=== PATIENT | female | born 1975 | race Caucasian/White ===

== ENCOUNTER 2022-05-31 14:46 | Emergency (ER) | payer OTHER, SELFPAY ==
--- NOTE | ~2022-05-31 | CT_ITS ---
EXAMINATION: CT chest abdomen pelvis wo con DATE: 05/31/2022 15:40 INDICATION: abdominal pain, chest discomfort . TECHNIQUE: Computed tomography (CT) of the chest, abdomen, and pelvis was performed with 100 mL Omnip aque-350 intravenous contrast. Automated exposure control and iterative reconstruction technique were employed. The dose-length product was 1666.61 mGy-cm. COMPARISON: None FINDINGS: Thoracic aorta: No significant dilation or calcification. Lung parenchyma and airways: Bibasilar scar/atelectasis. Very mild scattered tree-in-bud opacities. L ungs and airways are otherwise clear. Thoracic inlet, axillae and chest wall: No thyroid or soft tissue mass. No axillary lymphadenopathy. Intact sternotomy wires. Mediastinum: No mass or lymphadenopathy. Heart and pericardium: Normal heart size. No pericardial effusion. Cardiac valve replacement. Coronary artery calcifications: Absent4. Pleura: No effusion or mass. Thoracic bones: No acute osseous finding in the chest. ABDOMEN/PELVIS: Liver: Normal. Biliary/Gallbladder: Gallbladder is normal. No bile duct dilation. Pancreas: No mass or duct dilation. Spleen: Normal. Adrenals:Small left adrenal adenoma Kidneys: No mass, stone, or hydronephrosis. GI tract: No small or large bowel dilation. Normal appendix. Mesentery/Peritoneum: No ascites, mass, or free air. Retroperitoneum: No mass Pelvis: Normal urinary bladder and uterus. 3.2 cm simple left ovarian cyst. Soft Tissues: Abandoned epicardial pacing wires. Small supraumbilical ventral hernia containing fat, with mild inflammatory change. Small uncomplicated fat-containing umbilical hernia. Abdominopelvic bones: No acute osseous finding in the abdomen/pelvis. IMPRESSION: Minimal scattered tree-in-bud opacities in the lungs, as can be seen with atypical infection, ABPA, a nd small airways disease. Minimal inflammation of a small fat-containing, supra umbilical, ventral he rnia. No other acute findings in the chest abdomen or pelvis. Reviewed, dictated and finalized at location K. [facility] IMPRESSION: Minimal scattered tree-in-bud opacities in the lungs, as can be seen with atypi sharlene infection, ABPA, and small airways disease. Minimal inflammation of a small fat-containing, supra umbilical, ventral hernia. No other acute findings in th e chest abdomen or pelvis.
[2022-05-31 14:50] VITALS: BP 166/97; PULSE 94; RESP 18; TEMP 36.2; O2SAT 97
--- NOTE | 2022-05-31 15:24 | ECG_ITS ---
Measurements Intervals [place] Rate: 85 P: 60 IA: 173 QRS: 10 QRSD: 93 T: 65 QT: 402 QTc: 479 Interpretive Statements SINUS RHYTHM NONSPECIFIC T-WAVE ABNORMALITY BORDERLINE ECG NO PREVIOUS ECG AVAILABLE FOR COMPARISON Electronically Signed On 06-01-2022 13:26:14 RADIOLOGY SPECIAL PROCEDURE TECH by Delmar Horton M.D.
[2022-05-31 15:41] LABS: Appearance Urine Clear (Clear); Bilirubin Urine Negative (Negative); Blood Urine Negative (Negative); Glucose Urine UA Negative (Negative); Ketones Urine Negative (Negative); Leukocyte Esterase Ur Negative LEU/UL (Negative); Nitrate Urine Negative (Negative); Protein Urine Trace (Negative); Specific Grav Ur >= 1.030 (1.010-1.020); Urobilinogen Urine 0.2 mg/dL (0.2-1.0); pH Urine 5.5 (5.0-8.0)
[2022-05-31] MEDS: ALPRAZolam (*CRX) 0.5 MG TABLET PO (15:44)
[2022-05-31 15:49] LABS: Add Urine Microscopic? YES; Amorphous Sediment Urine Few; Color Urine Light Yellow (Yellow); Mucus Urine Few /lpf; Squamous Epithelial Cell Urine Many /hpf (Few)
--- NOTE | 2022-05-31 15:57 | PC.NURSE ---
attempted to start saline lock x2 unsuccessful. erp consulted et states the access is not needed at this time... we can hold off until results are back . resp even and non-labored at this time.
[2022-05-31 17:00] VITALS: BP 165/97; PULSE 88; RESP 16; TEMP 36.4; O2SAT 98
[2022-05-31 17:32] LABS: Basophils Absolute Auto 0.03 K/mm3 (0.00-0.10); Basophils Percent Auto 0.3 % (0.0-1.0); Eosinophils Absolute Auto 0.18 K/mm3 (0.02-0.50); Eosinophils Percent Auto 1.9 % (1.0-6.0); Hematocrit 49.6 % (35.0-49.0); Hemoglobin 15.3 g/dL (12.0-15.0); Immature Granulocyte Absolute 0.04 K/mm3 (0.00-0.00); Immature Granulocyte Percent A 0.4 % (0.0-0.0); Lymphocytes Absolute Auto 2.35 K/mm3 (1.10-4.50); Mean Corpuscular HGB Conc 30.8 g/dL (32.0-36.0); Mean Corpuscular Hemoglobin 28.9 pg (27.0-31.0); Mean Corpuscular Volume 93.6 fL (78.0-102.0); Mean Platelet Volume 10.6 fl (9.2-11.8); Monocytes Absolute Auto 0.44 K/mm3 (0.10-0.90); Monocytes Percent Auto 4.7 % (2.0-11.0); Neutrophils Absolute Auto 6.4 K/mm3 (1.7-7.2); Neutrophils Percent Auto 67.7 % (50.0-70.0); Platelet Count Result 228 K/mm3 (150-420); Red Cell Distribution Width 14.6 % (11.6-14.4); White Blood Count 9.4 K/mm3 (4.8-10.8)
--- NOTE | 2022-05-31 17:37 | PC.NURSE ---
2 more attempts to start iv access unsuccessful, pt shavon procedures well.
--- NOTE | 2022-05-31 17:37 | ED.GENADULT ---
HPI - General Adult General Chief complaint: Unspecified Stated complaint: dizzy, abd pain, arm pain Time Seen by Provider: 05/31/22 14:49 Related Data Home Medications Medication Instructions Recorded Confirmed metformin 500 mg tablet 500 mg PO DAILY 05/31/22 05/31/22 warfarin 5 mg tablet 5 mg PO DAILY 05/31/22 05/31/22 Allergies Allergy/AdvReac Type Severity Reaction Status Date / Time Penicillins AdvReac Unknown ABD PAIN Verified 05/31/22 15:11 Course Vital Signs Vital signs: Vital Signs Temperature 97.1 F L 05/31/22 14:50 Pulse Rate 94 05/31/22 14:50 Respiratory Rate 18 05/31/22 14:50 Blood Pressure 166/97 H 05/31/22 14:50 Pulse Oximetry 97 05/31/22 14:50 Oxygen Delivery Room Air 05/31/22 14:50 Temperature 97.1 F L 05/31/22 14:50 Pulse Rate 94 05/31/22 14:50 Respiratory Rate 18 05/31/22 14:50 Blood Pressure 166/97 H 05/31/22 14:50 Pulse Oximetry 97 05/31/22 14:50 Oxygen Delivery Room Air 05/31/22 14:50 Medical Decision Making Vital Signs Vital Signs: Vital Signs Temperature 97.1 F L 05/31/22 14:50 Pulse Rate 94 05/31/22 14:50 Respiratory Rate 18 05/31/22 14:50 Blood Pressure 166/97 H 05/31/22 14:50 Pulse Oximetry 97 05/31/22 14:50 Oxygen Delivery Room Air 05/31/22 14:50 Temperature 97.1 F L 05/31/22 14:50 Pulse Rate 94 05/31/22 14:50 Respiratory Rate 18 05/31/22 14:50 Blood Pressure 166/97 H 05/31/22 14:50 Pulse Oximetry 97 05/31/22 14:50 Oxygen Delivery Room Air 05/31/22 14:50 Lab Data 05/31/22 17:26 05/31/22 17:26 Labs: Lab Results 05/31/22 05/31/22 05/31/22 Range/Units 15:24 17:26 17:26 WBC Pending RBC Pending Hgb Pending Hct Pending MCV Pending MCH Pending MCHC Pending RDW Pending Plt Count Pending MPV Pending Immature Gran % (Auto) Pending Neut % (Auto) Pending Lymph % (Auto) Pending Terrell % (Auto) Pending Eos % (Auto) Pending Baso % (Auto) Pending Lymph # (Auto) Pending [place]rell # (Auto) Pending Eos # (Auto) Pending Baso # (Auto) Pending Abs Immat Gran (auto) Pending Absolute Neuts (auto) Pending Absolute Nucleated RBC Pending Nucleated RBC % Pending PT Pending INR Pending APTT Pending Sodium Potassium Chloride Carbon Dioxide Anion Gap BUN Creatinine Estim Creat Clear Calc Estimated GFR Glucose Hemoglobin A1c Calculated Osmolality Lactic Acid Calcium Total Bilirubin AST ALT Alkaline Phosphatase Troponin I NT-Pro-B Natriuret Pep Total Protein Albumin Lipase TSH Urine Color Light yellow (Yellow) Urine Appearance Clear (Clear) Urine pH 5.5 (5.0-8.0) Ur Specific [place] >= 1.030 H (1.010-1.020) Urine Protein Trace H (Negative) Urine Glucose (UA) Negative (Negative) Urine Ketones Negative (Negative) Ur Blood (Man) Negative (Negative) Urine Nitrate Negative (Negative) Urine Bilirubin Negative (Negative) Urine Urobilinogen 0.2 (0.2-1.0) mg/dL Leukocyte Esterase Rfl Negative (Negative) FAVIAN/UL Ur Squamous Epith Cells Many H (Few) /hpf Amorphous Sediment Few H (None) Hyaline Casts 5-9 H (None) /lpf Granular Casts 5-9 H (None) /lpf Urine Mucus Few H /lpf 05/31/22 05/31/22 05/31/22 Range/Units 17:26 17:26 17:26 WBC RBC Hgb Hct MCV MCH MCHC RDW Plt Count MPV Immature Gran % (Auto) Neut % (Auto) Lymph % (Auto) Terrell % (Auto) Eos % (Auto) Baso % (Auto) Lymph # (Auto) Terrell # (Auto) Eos # (Auto) Baso # (Auto) Abs Immat Gran (auto) Absolute Neuts (auto) Absolute Nucleated RBC Nucleated RBC
[2022-05-31 17:42] LABS: INR 3.1; Partial Thromboplastin Time 53.3 SEC (23.90-30.70); Prothrombin Time 30.7 Seconds (9.50-12.10)
[2022-05-31 17:45] LABS: Hemoglobin A1C 7.4 % (<5.7)
[2022-05-31 17:49] LABS: Lactic Acid Reflex 0.6 mmol/L (0.4-2.0)
[2022-05-31 17:56] LABS: Alanine Aminotransferase 22 U/L (14-59); Albumin Level 3.1 g/dL (3.4-5.0); Alkaline Phosphatase 101 U/L (46-116); Anion Gap 8 mmol/L (8-16); Aspartate Amino Transferase 26 U/L (15-37); Bilirubin,Total 0.8 mg/dL (0.00-1.00); Blood Urea Nitrogen 20 mg/dL (7-18); Calcium 8.8 mg/dL (8.5-10.1); Carbon Dioxide 22 mmol/L (21-32); Chloride 101 mmol/L (98-108); Estimated CRCL calculation 93 ml/min; Estimated Glomerular Filt Rate > 60; Glucose 114 mg/dL (70-99); Lipase 206 U/L (73-393); NT Pro B Type Natriuretic Pept 167 pg/mL (0-125); Osmolality Calculated 275 mOsm/kg (285-295); Sodium 131 mmol/L (136-145); Total Protein 7.7 g/dL (6.4-8.2)
--- NOTE | 2022-05-31 18:06 | ED.GENADULT ---
HPI - General Adult General Chief complaint: Unspecified Stated complaint: dizzy, abd pain, arm pain Time Seen by Provider: 05/31/22 14:49 Source: patient Mode of arrival: ambulatory Limitations: no limitations History of Present Illness HPI narrative: this is a 46-year-old female with generalized discomfort and anxiety secondary to her history of diabetes has a history of aortic valve replacement currently no shortness of breath no chest pain does have some vague abdominal discomfort with no fever chills no nausea vomiting no diarrhea constipation. Onset (ago): month(s) Related Data Home Medications Medication Instructions Recorded Confirmed metformin 500 mg tablet 500 mg PO DAILY 05/31/22 05/31/22 warfarin 5 mg tablet 5 mg PO DAILY 05/31/22 05/31/22 Allergies Allergy/AdvReac Type Severity Reaction Status Date / Time Penicillins AdvReac Unknown ABD PAIN Verified 05/31/22 15:11 Review of Systems Review of Systems: All systems reviewed & are unremarkable except as noted in HPI and below PMFSH Past Medical History Medical History Diabetes mellitus Exam Const: General: healthy appearing Nutritional Appearance: well nourished Orientation/consciousness: patient oriented x3 Limitations: no limitations HENMT: Head: normal to inspection Face/Nose/Sinus: Normal external nose present Face and sinus: normal facial exam Eyes: Conjunctivae: conjunctivae normal Pupils: Equal, round and reactive pupils present EOM: EOMs intact bilaterally Direct Ophthalmoscopy: no photophobia Neck: Neck: normal visual inspection Chest: Chest palpation & inspection: normal inspection of the chest Resp: Effort & Inspection: normal respiratory effort Auscultation: clear to auscultation bilaterally Cardio: Rate: regular rate Rhythm: regular rhythm GI: GI Palp: Yes Soft to palpation : General: Yes bladder normal to palpation Urinary Catheter: Urinary Catheter: patent and draining Skin: General skin exam: normal color Rashes: no rashes Neuro: General: patient oriented x3 Cranial nerves: Yes Nystagmus not present Speech: normal speech Extrem: General: normal to inspection Psych: Mental Status: mental status grossly normal Affect: normal affect Course Course Emergency Course: CT scan and labs reviewed with patient, the patient did receive Xanax which helped with her anxiety. Vital Signs Vital signs: Vital Signs Temperature 36.2 C L 05/31/22 14:50 Pulse Rate 94 05/31/22 14:50 Respiratory Rate 18 05/31/22 14:50 Blood Pressure 166/97 H 05/31/22 14:50 Pulse Oximetry 97 05/31/22 14:50 Oxygen Delivery Room Air 05/31/22 14:50 Temperature 36.4 C 05/31/22 17:00 Pulse Rate 88 05/31/22 17:00 Respiratory Rate 16 05/31/22 17:00 Blood Pressure 165/97 H 05/31/22 17:00 Pulse Oximetry 98 05/31/22 17:00 Oxygen Delivery Room Air 05/31/22 17:00 Medical Decision Making Vital Signs Vital Signs: Vital Signs Temperature 36.2 C L 05/31/22 14:50 Pulse Rate 94 05/31/22 14:50 Respiratory Rate 18 05/31/22 14:50 Blood Pressure 166/97 H 05/31/22 14:50 Pulse Oximetry 97 05/31/22 14:50 Oxygen Delivery Room Air 05/31/22 14:50 Temperature 36.4 C 05/31/22 17:00 Pulse Rate 88 05/31/22 17:00 Respiratory Rate 16 05/31/22 17:00 Blood Pressure 165/97 H 05/31/22 17:00 Pulse Oximetry 98 05/31/22 17:00 Oxygen Delivery Room Air 05/31/22 17:00 Lab Data 05/31/22 17:26 05/31/22 17:26 Labs: Lab Results 05/31/22 05/31/22 05/31/22 Range/Units 15:24 17:26 17:26 WBC 9.4 (4.8-10.8) K/mm3 RBC 5.30 (4.20-5.40) M/mm3 Hgb 15.3 H (12.0-15.0) g/dL Hct 49.6 H (35.0-49.0) % MCV 93.6 (78.0-102.0) fL MCH 28.9 (27.0-31.0) pg MCHC 30.8 L (32.0-36.0) g/dL RDW 14.6 H (11.6-14.4) % Plt Count 228 (150-420) K/mm3 MPV 10.6 (9.2-11.8)
[2022-05-31 18:12] VITALS: BP 146/94; PULSE 84; RESP 16; O2SAT 100
== END 2022-05-31 18:15 | disposition home or self-care (01) ==
PROVIDERS: Emergency Provider Emergency Medicine; PCP Family Medicine
DX: F41.9 Anxiety disorder, unspecified (principal); E11.9 Type 2 diabetes mellitus without complications
CPT/HCPCS: 36415; 71250; 74176; 80053; 81001; 83036; 83605; 83690; 83880; 84443; 84484; 85025; 85610; 85730; 93005; 99284; A9270

== ENCOUNTER 2022-08-08 13:58 | Outpatient (CLI) | payer OTHER, SELFPAY ==
[2022-08-08 14:50] LABS: INR 2.3
== END 2022-08-08 13:59 | disposition home or self-care (01) ==
PROVIDERS: PCP Family Medicine
DX: Z79.01 Long term (current) use of anticoagulants (principal)
CPT/HCPCS: 36415; 85610

== ENCOUNTER 2022-09-28 20:30 | Emergency (ER) | payer OTHER, SELFPAY ==
--- NOTE | ~2022-09-28 | XR_ITS ---
EXAMINATION: [id number] Exam Date/Time: 09/28/2022 20:35 CDT HISTORY: COUGH, FALL 2 WEEKS AGO. PAIN ANTERIOR LEFT RIBS. Comparison: None available. RESULT: Lines, tubes, and devices: Intact sternotomy wires. Apparently abandoned pacing wires. Lungs and pleura: Linear bibasilar opacities likely representing atelectasis/scar. Cardiomediastinal silhouette: Stable. Other: No acute osseous or upper abdominal finding. IMPRESSION: No acute cardiopulmonary process. No acute osseous finding in the left ribs. Reviewed, dictated and finalized at location K.
[2022-09-28 20:32] VITALS: BP 168/101; PULSE 99; RESP 18; TEMP 36.6; O2SAT 97
--- NOTE | 2022-09-28 20:33 | ED.GENADULT ---
HPI - General Adult General Chief complaint: Unspecified Stated complaint: Rib Pain Time Seen by Provider: 09/28/22 20:30 Source: patient Mode of arrival: ambulatory Limitations: no limitations History of Present Illness HPI narrative: 46 year old female presents to the Emergency Department complaining of left lower chest /rib pain. patient states began several days ago. has been coughing. Hurts to take deep breath. Cough productive clear phlegm. Smoker. States she fell 1.5 weeks ago, but did not strike chest. Onset (ago): day(s) (several) Location: chest (left lower) Severity: severe Quality: sharp Relieving factors: none Exacerbating factors: other (deep breaths, coughing, palpation) Associated symptoms: cough Related Data Home Medications Medication Instructions Recorded Confirmed metformin 500 mg tablet 500 mg PO DAILY 05/31/22 09/28/22 atorvastatin 20 mg tablet 20 mg PO DAILY 09/28/22 09/28/22 levothyroxine 25 mcg tablet 25 mcg PO DAILY 09/28/22 09/28/22 pantoprazole 20 mg tablet,delayed 20 mg PO DAILY 09/28/22 09/28/22 release spironolactone 25 mg tablet 25 mg PO DAILY 09/28/22 09/28/22 warfarin 6 mg tablet 6 mg PO DIRECTED 09/28/22 09/28/22 Allergies Allergy/AdvReac Type Severity Reaction Status Date / Time morphine Allergy Unknown Verified 09/28/22 20:44 Penicillins AdvReac Unknown ABD PAIN Verified 05/31/22 15:11 Review of Systems Review of Systems: All systems reviewed & are unremarkable except as noted in HPI and below Constitutional: Constitutional: Reports as per HPI, Reports no additional constitutional complaints and Denies fever(s) Eyes: Eyes: Reports as per HPI and Reports no additional eye complaints ENT: Reports system reviewed and no additional complaints, except as documented and Reports as per HPI Cardiovascular: Cardiovascular: Reports as per HPI, Reports no additional cardiovascular complaints, Reports chest pain (left lower), Denies chest pain at rest, Denies chest pain with activity, Denies palpitations, Denies dyspnea, Denies dyspnea on exertion, Denies orthopnea and Denies paroxysmal nocturnal dyspnea Respiratory: Respiratory: Reports as per HPI, Reports no additional respiratory complaints, Reports cough, Denies hemoptysis, Reports pain on inspiration, Reports pain with cough, Denies dyspnea and Denies dyspnea on exertion Gastrointestinal: Gastrointestinal: Reports as per HPI, Reports no additional gastrointestinal complaints, Denies abdominal pain, Denies diarrhea, Denies nausea and Denies vomiting Genitourinary: Genitourinary: Reports no additional female genitourinary complaints and Reports as per HPI Musculoskeletal: Musculoskeletal: Reports no additional musculoskeletal complaints, Reports as per HPI, Denies back pain and Denies neck pain Integumentary/Breasts: Skin/Breast: Reports system reviewed and no additional complaints, except as docu and Reports as per HPI Neurologic: Reports system reviewed and no additional complaints, except as documented and Reports as per HPI Psychiatric: Psychiatric: Reports no additional psychiatric complaints Endocrine: Endocrine: Reports no additional endocrine complaints Hematologic/Lymphatic: Hematologic/Lymphatic: Reports no additional hematologic/lymphatic complaints Allergic/Immunologic: Allergic/Immunologic: Reports no additional allergic/immunologic complaints [facility] Past Medical History Medical History Diabetes mellitus Exam Const: General: cooperative, healthy appearing and well developed; No acute distress or diaphoretic Nutritional Appearance: average body habitus Orientation/consciousness: patient oriented x3 Limitations: no limitations HENMT: Head: normal to inspection Face/Nose/Sinus: Normal external nose present Face and sinus: normal facial exam Mouth: Yes oropharynx normal and Yes moist mucous membranes Throat: posterior oropharynx normal Eyes: Genera
[2022-09-28] MEDS: HYDROcodone/acetaminophen (*CRX) 10-325 MG TABLET 1 TAB PO (22:06)
[2022-09-28] MEDS: BENZONATATE 100 MG CAPSULE 200 MG PO (22:07)
[2022-09-28 22:10] VITALS: PULSE 80; RESP 18; O2SAT 96
== END 2022-09-28 22:11 | disposition home or self-care (01) ==
PROVIDERS: Emergency Provider Emergency Medicine; PCP Family Medicine
DX: R07.89 Other chest pain (principal); E11.9 Type 2 diabetes mellitus without complications; Z79.84 Long term (current) use of oral hypoglycemic drugs; Z79.01 Long term (current) use of anticoagulants; F17.200 Nicotine dependence, unspecified, uncomplicated
CPT/HCPCS: 71101; 99283; A9270

== ENCOUNTER 2023-09-08 15:05 | Outpatient (CLI) | payer OTHER, SELFPAY ==
--- NOTE | ~2023-09-08 | US_ITS ---
EXAMINATION: US soft tissue abdomen DATE: 09/08/2023 15:31 INDICATION: Supraumbilical palpable mass at the anterior abdomen TECHNIQUE: Multiple grayscale and Doppler ultrasound images of the region of concern at the supraumbi lical anterior abdomen were obtained. COMPARISON: CT dated 05/31/2022 FINDINGS: Slight interval increase in size of a now 4.3 x 3.9 x 2.3 cm fat-containing supraumbilical ventral he rnia which previous measured 3.7 x 2.5 x 1.8 cm at the time of the prior CT. The hernia extends throu gh approximately 8-10 mm wide orifice. There is minimal change with Valsalva. Stool-filled colon can be seen deep to the anterior abdominal wall. No evident herniated bowel. IMPRESSION: 1. Small interval increase in size of a now 4.3 x 3.9 x 2.3 cm fat-containing supraumbilical ventral hernia. Reviewed, dictated and finalized at location L. IMPRESSION: 1. Small interval increase in size of a now 4.3 x 3.9 x 2.3 cm fat-containing s upraumbilical ventral hernia.
== END 2023-09-08 15:06 | disposition home or self-care (01) ==
PROVIDERS: PCP Family Medicine
DX: R19.00 Intra-abdominal and pelvic swelling, mass and lump, unspecified site (principal)
CPT/HCPCS: 76705

== ENCOUNTER 2024-08-31 20:11 | Emergency (ER) | payer OTHER, SELFPAY ==
[2024-08-31] VITALS (14 sets, daily range): BP systolic 152–167; BP diastolic 86–116; PULSE 75–87; RESP 15–37; TEMP 36.6; O2SAT 99–100
--- NOTE | 2024-08-31 20:15 | ED.CHESTPAIN ---
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 The pain is unprovoked. No relation to exercise. It is tender on palpation. The location is over the left breast. Pain currently is rated as 3/10. No shortness of breath. No paroxysmal nocturnal dyspnea. Has dyspnea on exertion. no fever or chills. No worsening cough or sputum production. MD complaint: chest pain Pertinent past history: other ( Status post tricuspid valve replacement) Onset (ago): year(s) ( 9 years ago) Timing of current episode: episodic Prior episodes: Yes Onset: during rest Pain location: left chest Pain radiation: none Severity: mild Pain scale (0-10): 3 Quality: sharp Relieving factors: nothing Exacerbating factors: nothing Treatment prior to arrival: none Risk Factors Coronary artery disease risk factors: diabetes, smoking history, hyperlipidemia and hypertension Thoracic aortic dissection risk factors: longstanding hypertension Related Data Home Medications ?Medication ?Instructions ?Recorded ?Confirmed ?Last Taken ?Type metformin 500 mg tablet 500 mg PO DAILY 05/31/22 09/28/22 Unknown History atorvastatin 20 mg tablet 20 mg PO DAILY 09/28/22 09/28/22 Unknown History levothyroxine 25 mcg tablet 25 mcg PO DAILY 09/28/22 09/28/22 Unknown History pantoprazole 20 mg tablet,delayed 20 mg PO DAILY 09/28/22 09/28/22 Unknown History release spironolactone 25 mg tablet 25 mg PO DAILY 09/28/22 09/28/22 Unknown History warfarin 6 mg tablet 6 mg PO DIRECTED 09/28/22 09/28/22 Unknown History Allergies Allergy/AdvReac Type Severity Reaction Status Date / Time morphine Allergy Unknown Verified 08/31/24 20:22 Penicillins AdvReac Unknown ABD PAIN Verified 08/31/24 20:22 Review of Systems Review of Systems: All systems reviewed & are unremarkable except as noted in HPI and below Constitutional: Constitutional: Reports as per HPI and Reports no additional constitutional complaints Eyes: Eyes: Reports as per HPI and Reports no additional eye complaints ENT: Reports system reviewed and no additional complaints, except as documented and Reports as per HPI Cardiovascular: Cardiovascular: Reports as per HPI and Reports no additional cardiovascular complaints Respiratory: Respiratory: Reports as per HPI and Reports no additional respiratory complaints Gastrointestinal: Gastrointestinal: Reports as per HPI and Reports no additional gastrointestinal complaints Comments: abdominal wall hernia in the epigastric region Genitourinary: Genitourinary: Reports no additional female genitourinary complaints and Reports as per HPI Musculoskeletal: Musculoskeletal: Reports no additional musculoskeletal complaints and Reports as per HPI Integumentary/Breasts: Skin/Breast: Reports system reviewed and no additional complaints, except as docu and Reports as per HPI Neurologic: Reports system reviewed and no additional complaints, except as documented and Reports as per HPI Psychiatric: Psychiatric: Reports no additional psychiatric complaints and Reports as per HPI Endocrine: Endocrine: Reports no additional endocrine complaints and Reports as per HPI Hematologic/Lymphatic: Hematologic/Lymphatic: Reports no additional hematologic/lymphatic complaints and Reports as per HPI Allergic/Immunologic: Allergic/Immunologic: Reports no additional allergic/immunologic complaints and Reports as per HPI [facility] Past Medical History Medical History (Updated 08/31/24 @ 21:41 by Tam Putnam MD) Dyslipidemia Hypertension Diabetes mellitus Surgical History Surgical History (Updated 08/31/24 @ 20:31 by Tam Putnam MD) H/O tricuspid valve replacement Social History Social History (Updated 08/31/24 @ 20:31 by Tam Putnam MD) Social History: smoke Exam Narrative: blood pressure 156/93. Oxygen saturation of 100% on room air. Afebrile. Const: General: no acute distress Nutritional Appearance: well nourished Orientation/consciousness: patient oriented x3 Limitations: no limitations HENMT: Head: normal to inspection Ears: external ears normal Face/Nose/Sinus: Normal external nose present Face and sinus: normal facial exam Mouth: Yes Normal oral and palatal mucosa present Throat: posterior oropharynx normal Eyes: Conjunctivae: conjunctivae normal Pupils: Equal, round and reactive pupils present EOM: EOMs intact bilaterally Direct Ophthalmoscopy: no photophobia Neck: Neck: normal visual inspection Chest: Chest palpation & inspection: normal inspection of the chest Other: Tenderness over the left anterior chest Resp: Effort & Inspection: normal respiratory effort Auscultation: clear to auscultation bilaterally Cardio: Rate: regular rate Rhythm: regular rhythm GI: GI Palp: Yes Soft to palpation Auscultation: normal bowel sounds Other: epigastric parietal hernia. No tenderness/ rigidity /rebound. : General: Yes no CVA tenderness Back/Spine/Pelvis: Back: no CVA tenderness Skin: General skin exam: normal color Rashes: no rashes Wounds: no wounds Neuro: General: patient oriented x3, moves all extremities, no meningeal signs, no focal motor deficits and CN's II-XI intact bilaterally Speech: normal speech Extrem: General: normal to inspection and no clubbing, cyanosis or edema Psych: Mental Status: mental status grossly normal Affect: normal affect Attitude: cooperative Course Course Emergency Course: left chest pain-- Tenderness on palpation of the left chest wall.EKG did not show any acute findings. Normal troponins. Chest x-ray did not show any acute findings. Vital Signs Vital signs: Vital Signs Temperature 36.6 C 08/31/24 20:20 Pulse Rate 87 08/31/24 20:20 Respiratory Rate 15 08/31/24 20:20 Blood Pressure 156/93 H 08/31/24 20:20 Pulse Oximetry 99 08/31/24 20:20 Oxygen Delivery Room Air 08/31/24 20:20 Temperature 36.6 C 08/31/24 20:20 Pulse Rate 79 08/31/24 21:50 Respiratory Rate 18 08/31/24 21:50 Blood Pressure 162/86 H 08/31/24 21:50 Pulse Oximetry 100 08/31/24 21:50 Oxygen Delivery Room Air 08/31/24 21:50 MDM - Chest Pain MDM Narrative Medical decision making narrative: Left chest wall pain Differential Diagnosis Differential diagnosis: Likely fracture of rib and pneumothorax Medical Records Data Attestation: I reviewed the patient's medical records. Lab Data Attestation: I reviewed the patient's lab results. 08/31/24 20:55 08/31/24 20:55 Labs: Lab Results 08/31/24 08/31/24 08/31/24 Range/Units 20:45 20:46 20:55 WBC 10.2 (4.8-10.8) K/mm3 RBC 4.96 (4.20-5.40) M/mm3 Hgb 14.4 (12.0-15.0) g/dL Hct 45.5 (35.0-49.0) % MCV 91.7 (78.0-102.0) fL MCH 29.0 (27.0-31.0) pg MCHC 31.6 L (32-36) g/dL RDW 13.9 (11.6-14.4) % Plt Count 234 (150-420) K/mm3 MPV 10.2 (9.2-11.8) fl Immature Gran % (Auto) 0.4 H (0.0-0.0) % Neut % (Auto) 69.8 (50.0-70.0) % Lymph % (Auto) 21.6 (18.0-42.0) % [place] % (Auto) 4.8 (2.0-11.0) % Eos % (Auto) 3.0 (1.0-6.0) % Baso % (Auto) 0.4 (0.0-1.0) % Lymph # (Auto) 2.21 (1.10-4.50) K/mm3 [place] # (Auto) 0.49 (0.10-0.90) K/mm3 Eos # (Auto) 0.31 (0.02-0.50) K/mm3 Baso # (Auto) 0.04 (0.00-0.10) K/mm3 Abs Immat Gran (auto) 0.04 H (0.00-0.00) K/mm3 Absolute Neuts (auto) 7.12 (1.70-7.20) K/mm3 Absolute Nucleated RBC 0.00 (0.00-0.00) K/mm3 Nucleated RBC % 0.0 (0-0.0) % PT 24.8 H (9.50-12.1) Seconds INR 2.4 Sodium 142 (136-145) mmol/L Potassium 3.8 (3.5-5.1) mmol/L Chloride 106 (98-108) mmol/L Carbon Dioxide 31 (21-32) mmol/L Anion Gap 5 (4-12) mmol/L BUN 17 (7-18) mg/dL Creatinine 0.81 (0.55-1.02) mg/dL Estim Creat Clear Calc 81 ml/min Estimated GFR > 60 (59 - ) Glucose 86 (70-99) mg/dL Calculated Osmolality 294 (285-295) mOsm/kg Lactic Acid 0.8 (0.4-2.0) mmol/L Calcium 8.9 (8.5-10.1) mg/dL Total Bilirubin 0.3 (0.00-1.00) mg/dL AST 32 (15-37) U/L ALT 27 (14-59) U/L Alkaline Phosphatase 99 (46-116) U/L Troponin I 11.8 (0.00-60.4) ng/L NT-Pro-B Natriuret Pep 208 H (0-125) pg/mL Total Protein 7.4 (6.4-8.2) g/dL Albumin 3.7 (3.4-5.0) g/dL TSH 2.80 (0.36-3.74) uIU/mL Urine Color Yellow (Yellow) Urine Appearance Sl cloudy A (Clear) Urine pH 5.5 (5.0-8.0) Ur Specific [place] >= 1.030 H (1.010-1.020) Urine Protein 1+ H (Negative) Urine Glucose (UA) Negative (Negative) Urine Ketones Negative (Negative) Ur Blood (Man) Negative (Negative) Urine Nitrate Negative (Negative) Urine Bilirubin Negative (Negative) Urine Urobilinogen 0.2 (0.2-1.0) mg/dL Leukocyte Esterase Rfl Negative (Negative) FAVIAN/UL Urine RBC 0-2 (0-2) /hpf Urine WBC 0-3 (0-3) /hpf Ur Squamous Epith Cells Many H (Few) /hpf Amorphous Sediment Few H (None) Urine Bacteria 1+ H (None) /hpf Urine Mucus Few H /lpf Influenza A (RT-PCR) Negative (Negative) Influenza B (RT-PCR) Negative (Negative) RSV (RT-PCR) Negative (Negative) SARS-CoV-2 RNA (RT-PCR) Negative (Negative) ECG Data EKG #1: ECG completion date: 08/31/24 ECG completion time: 20:17 Interpretation: normal sinus rhythm. Normal axis. No ST elevation. Discharge Plan Discharge Clinical Impression: Left-sided chest wall pain Patient Disposition: Home, Self-Care Condition: Stable Instructions: Antibiotic Form, Chest Wall Pain (ED) Patient Language: Ethiopian Prescriptions: No Action atorvastatin 20 mg tablet 20 mg PO DAILY spironolactone 25 mg tablet 25 mg PO DAILY levothyroxine 25 mcg tablet 25 mcg PO DAILY pantoprazole 20 mg tablet,delayed release (DR/EC) 20 mg PO DAILY warfarin 6 mg tablet 6 mg PO DIRECTED benzonatate 200 mg capsule 200 mg PO TID PRN (Reason: cough) Qty: 20 0RF hydrocodone-acetaminophen 10-325 mg tablet 1 tablet PO Q6H PRN (Reason: pain) Qty: 20 0RF metformin 500 mg tablet 500 mg PO DAILY alprazolam [Xanax] 0.5 mg tablet 0.5 mg PO BID PRN (Reason: anxiety) Qty: 20 0RF Follow-up/Referrals: Saúl Tyler M.D. [Primary Care Provider] - Time of Disposition: 21:41
--- NOTE | 2024-08-31 20:42 | PC.NURSE ---
nasal swab obtained and sent to lab
--- NOTE | 2024-08-31 20:44 | PC.NURSE ---
pt ambulated to bathroom for urine specimen
[2024-08-31 21:06] LABS: Basophils Absolute Auto 0.04 K/mm3 (0.00-0.10); Basophils Percent Auto 0.4 % (0.0-1.0); Eosinophils Absolute Auto 0.31 K/mm3 (0.02-0.50); Hematocrit 45.5 % (35.0-49.0); Hemoglobin 14.4 g/dL (12.0-15.0); Immature Granulocyte Absolute 0.04 K/mm3 (0.00-0.00); Immature Granulocyte Percent A 0.4 % (0.0-0.0); Lymphocytes Absolute Auto 2.21 K/mm3 (1.10-4.50); Lymphocytes Percent Auto 21.6 % (18.0-42.0); Mean Corpuscular HGB Conc 31.6 g/dL (32-36); Mean Corpuscular Volume 91.7 fL (78.0-102.0); Mean Platelet Volume 10.2 fl (9.2-11.8); Monocytes Absolute Auto 0.49 K/mm3 (0.10-0.90); Monocytes Percent Auto 4.8 % (2.0-11.0); Neutrophils Absolute Auto 7.12 K/mm3 (1.70-7.20); Neutrophils Percent Auto 69.8 % (50.0-70.0); Platelet Count Result 234 K/mm3 (150-420); Red Blood Count 4.96 M/mm3 (4.20-5.40); Red Cell Distribution Width 13.9 % (11.6-14.4); White Blood Count 10.2 K/mm3 (4.8-10.8)
[2024-08-31 21:18] LABS: Add Urine Microscopic? YES; Appearance Urine Sl Cloudy (Clear); Bilirubin Urine Negative (Negative); Blood Urine Negative (Negative); Color Urine Yellow (Yellow); Glucose Urine UA Negative (Negative); Ketones Urine Negative (Negative); Leukocyte Esterase Ur Negative LEU/UL (Negative); Nitrate Urine Negative (Negative); Protein Urine 1+ (Negative); Specific Grav Ur >= 1.030 (1.010-1.020); Urobilinogen Urine 0.2 mg/dL (0.2-1.0); pH Urine 5.5 (5.0-8.0)
[2024-08-31 21:22] LABS: INR 2.4; Prothrombin Time 24.8 Seconds (9.50-12.1)
[2024-08-31 21:24] LABS: Amorphous Sediment Urine Few; Bacteria Urine 1+ /hpf; Mucus Urine Few /lpf; RBC Urine 0-2 /hpf (0-2); Squamous Epithelial Cell Urine Many /hpf (Few); WBC Urine 0-3 /hpf (0-3)
[2024-08-31 21:27] LABS: SARS-CoV-2 RNA PCR Negative (Negative)
[2024-08-31 21:29] LABS: Influenza A QL RT-PCR Negative (Negative); Influenza B QL RT-PCR Negative (Negative); RSV RNA, RT-PCR Negative (Negative)
[2024-08-31 21:35] LABS: Lactic Acid Reflex 0.8 mmol/L (0.4-2.0)
[2024-08-31 21:36] LABS: Alanine Aminotransferase 27 U/L (14-59); Albumin Level 3.7 g/dL (3.4-5.0); Alkaline Phosphatase 99 U/L (46-116); Anion Gap 5 mmol/L (4-12); Aspartate Amino Transferase 32 U/L (15-37); Bilirubin,Total 0.3 mg/dL (0.00-1.00); Blood Urea Nitrogen 17 mg/dL (7-18); Calcium 8.9 mg/dL (8.5-10.1); Carbon Dioxide 31 mmol/L (21-32); Chloride 106 mmol/L (98-108); Estimated CRCL calculation 81 ml/min; Estimated Glomerular Filt Rate > 60; Glucose 86 mg/dL (70-99); NT Pro B Type Natriuretic Pept 208 pg/mL (0-125); Osmolality Calculated 294 mOsm/kg (285-295); Potassium 3.8 mmol/L (3.5-5.1); Sodium 142 mmol/L (136-145); Total Protein 7.4 g/dL (6.4-8.2)
[2024-08-31 21:37] LABS: Troponin I 11.8 ng/L (0.00-60.4)
== END 2024-08-31 21:50 | disposition home or self-care (01) ==
PROVIDERS: Emergency Provider Internal Medicine Critical Care Medicine; PCP Family Medicine
DX: R07.89 Other chest pain (principal); E11.9 Type 2 diabetes mellitus without complications; E78.5 Hyperlipidemia, unspecified; I11.0 Hypertensive heart disease with heart failure; I50.9 Heart failure, unspecified; Z79.01 Long term (current) use of anticoagulants; Z20.822 Contact with and (suspected) exposure to COVID-19
CPT/HCPCS: 36415; 71045; 80053; 81001; 83605; 83880; 84443; 84484; 85025; 85610; 87637; 93005; 99284

== ENCOUNTER 2024-11-22 20:41 | Emergency (ER) | payer OTHER, SELFPAY ==
[2024-11-22 20:41] VITALS: BP 152/95; PULSE 83; RESP 18; TEMP 36.7; O2SAT 100
--- NOTE | 2024-11-22 20:50 | ED.GENADULT ---
HPI - General Adult General Chief complaint: Dental/Oral Stated complaint: Bleeding from Dental work/blood thinner Time Seen by Provider: 11/22/24 20:49 Source: patient Mode of arrival: ambulatory Limitations: no limitations History of Present Illness HPI narrative: 48 years old white female had deep dental cleaning of the right lower side 12 hours ago, at home started having bleeding at that side. Uncontrolled. Patient on warfarin for cardiac metallic valve. No blood workup done prior to that procedure. Related Data Home Medications ?Medication ?Instructions ?Recorded ?Confirmed ?Last Taken ?Type metformin 500 mg tablet 500 mg PO DAILY 05/31/22 09/28/22 Unknown History atorvastatin 20 mg tablet 20 mg PO DAILY 09/28/22 09/28/22 Unknown History levothyroxine 25 mcg tablet 25 mcg PO DAILY 09/28/22 09/28/22 Unknown History pantoprazole 20 mg tablet,delayed 20 mg PO DAILY 09/28/22 09/28/22 Unknown History release spironolactone 25 mg tablet 25 mg PO DAILY 09/28/22 09/28/22 Unknown History warfarin 6 mg tablet 6 mg PO DIRECTED 09/28/22 09/28/22 Unknown History Allergies Allergy/AdvReac Type Severity Reaction Status Date / Time morphine Allergy Unknown Verified 11/22/24 22:10 Penicillins AdvReac Unknown ABD PAIN Verified 11/22/24 22:10 Review of Systems Review of Systems: All systems reviewed & are unremarkable except as noted in HPI and below PMFSH Past Medical History Medical History Dyslipidemia Hypertension Diabetes mellitus Surgical History Surgical History H/O tricuspid valve replacement Social History Social History Social History: smoke Exam Narrative: General appearance: Well-developed, well-nourished Skin: Normal color Head: Normocephalic, nontraumatic Eyes: Clear conjunctiva ENT: oozing Blood at the right lower side of the teeth, mild. Involving the whol teeth at the right lower side Neck: Supple, nontender Chest and respiratory: Airway patent, no respiratory distress, no accessory muscle use Heart: Regular rate/rhythm Musculoskeletal: Normal range of motion, nontender back Neurologic: Alert and oriented ?3, Medical Decision Making MDM Narrative Medical decision making narrative: patient came with right lower have dental bleed started within 1-2 hour after deep dental cleaning. Patient currently on warfarin for cardiac metal valve. Vital sign stable Physical examination showing oozing blood from the teeth at the right lower side. Pressure gauze applied. differential diagnosis were for a coagulopathy, thrombocytopenia, deep irritation of the gum causing bleeding Blood workup includes CBC, and coags showed INR 9.4, PTT 72.8 platelet count 250 otherwise within normal limit Vitamin K 10 mg IV, 2 units of fresh frozen plasma ordered. Kcentra is not available in this hospital. After lengthy explanation to what is ago known and that the patient need to be transferred to another facility for observation and managing her Coumadin level at the need to be transferred by ambulance The patient and her declined and would like to Leave immediately without waiting for IV medications or transportation. and they are planning to go to [facility] immediately. I declare that I have personally explained to the patient the risks and consequences involved in leaving this facility at this time. the benefits of continued treatment and/or hospitalization. And the alternatives. If any. to continued treatment and/or hospitalization. if applicable.I have not identified any psychosis, drugs, mental illness, or medical illness that alters decision-making capacity (reasoning abilities ). Differential Diagnosis Differential Diagnosis: As above Lab Data 11/22/24 21:03 Labs: Lab Results 11/22/24 Range/Units 21:03 WBC 11.0 H (4.8-10.8) K/mm3 RBC 5.21 (4.20-5.40) M/mm3 Hgb 15.0 (12.0-15.0) g/dL Hct 46.7 (35.0-49.0) % MCV 89.6 (78.0-102.0) fL MCH 28.8 (27.0-31.0) pg MCHC 32.1 (32-36) g/dL RDW 13.9 (11.6-14.4) % Plt Count 250 (150-420) K/mm3 MPV 10.1 (9.2-11.8) fl Immature Gran % (Auto) 0.5 H (0.0-0.0) % Neut % (Auto) 72.0 H (50.0-70.0) % Lymph % (Auto) 19.3 (18.0-42.0) % [facility] % (Auto) 5.3 (2.0-11.0) % Eos % (Auto) 2.5 (1.0-6.0) % Baso % (Auto) 0.4 (0.0-1.0) % Lymph # (Auto) 2.13 (1.10-4.50) K/mm3 [facility] # (Auto) 0.58 (0.10-0.90) K/mm3 Eos # (Auto) 0.27 (0.02-0.50) K/mm3 Baso # (Auto) 0.04 (0.00-0.10) K/mm3 Abs Immat Gran (auto) 0.05 H (0.00-0.00) K/mm3 Absolute Neuts (auto) 7.95 H (1.70-7.20) K/mm3 Absolute Nucleated RBC 0.00 (0.00-0.00) K/mm3 Nucleated RBC % 0.0 (0-0.0) % PT 83.6 H (9.50-12.1) Seconds INR 9.4 H* APTT 72.9 H (23.9-30.70) Sec Critical Care Time Critical Care Time Critical Care Time: No Discharge Plan Discharge Clinical Impression: Warfarin-induced coagulopathy, Surgical wound hemorrhage after dental procedure Patient Disposition: Left Against Medical Advice Condition: Guarded Prognosis Patient Language: Belgian Prescriptions: No Action atorvastatin 20 mg tablet 20 mg PO DAILY spironolactone 25 mg tablet 25 mg PO DAILY levothyroxine 25 mcg tablet 25 mcg PO DAILY pantoprazole 20 mg tablet,delayed release (DR/EC) 20 mg PO DAILY warfarin 6 mg tablet 6 mg PO DIRECTED benzonatate 200 mg capsule 200 mg PO TID PRN (Reason: cough) Qty: 20 0RF hydrocodone-acetaminophen 10-325 mg tablet 1 tablet PO Q6H PRN (Reason: pain) Qty: 20 0RF metformin 500 mg tablet 500 mg PO DAILY alprazolam [Xanax] 0.5 mg tablet 0.5 mg PO BID PRN (Reason: anxiety) Qty: 20 0RF Follow-up/Referrals: Saúl Tyler M.D. [Primary Care Provider] - Stand Alone Forms: Work/School Release IP
[2024-11-22 21:07] LABS: Basophils Absolute Auto 0.04 K/mm3 (0.00-0.10); Basophils Percent Auto 0.4 % (0.0-1.0); Eosinophils Absolute Auto 0.27 K/mm3 (0.02-0.50); Eosinophils Percent Auto 2.5 % (1.0-6.0); Hematocrit 46.7 % (35.0-49.0); Immature Granulocyte Absolute 0.05 K/mm3 (0.00-0.00); Immature Granulocyte Percent A 0.5 % (0.0-0.0); Lymphocytes Absolute Auto 2.13 K/mm3 (1.10-4.50); Lymphocytes Percent Auto 19.3 % (18.0-42.0); Mean Corpuscular HGB Conc 32.1 g/dL (32-36); Mean Corpuscular Hemoglobin 28.8 pg (27.0-31.0); Mean Corpuscular Volume 89.6 fL (78.0-102.0); Mean Platelet Volume 10.1 fl (9.2-11.8); Monocytes Absolute Auto 0.58 K/mm3 (0.10-0.90); Monocytes Percent Auto 5.3 % (2.0-11.0); Neutrophils Absolute Auto 7.95 K/mm3 (1.70-7.20); Platelet Count Result 250 K/mm3 (150-420); Red Blood Count 5.21 M/mm3 (4.20-5.40); Red Cell Distribution Width 13.9 % (11.6-14.4)
[2024-11-22 21:35] LABS: Partial Thromboplastin Time 72.9 Sec (23.9-30.70); Prothrombin Time 83.6 Seconds (9.50-12.1)
[2024-11-22 21:37] LABS: INR 9.4
== END 2024-11-22 22:06 | disposition left against medical advice (07) ==
PROVIDERS: Emergency Provider Emergency Medicine; PCP Family Medicine
DX: D68.32 Hemorrhagic disorder due to extrinsic circulating anticoagulants (principal); K13.79 Other lesions of oral mucosa; T45.515A Adverse effect of anticoagulants, initial encounter; I10 Essential (primary) hypertension; E11.9 Type 2 diabetes mellitus without complications; Z79.01 Long term (current) use of anticoagulants
CPT/HCPCS: 36415; 85025; 85610; 85730; 86850; 86900; 86901; 96361; 96374; 99284

== ENCOUNTER 2025-04-27 07:14 | Outpatient (CLI) | payer OTHER, SELFPAY ==
--- NOTE | ~2025-04-27 | US_ITS ---
US breast RT limited 04/27/2025 07:30 Indication: Right breast mass. Bruising. Patient on blood thinners. Procedure: High-resolution Limited ultrasound of the right breast Comparison: No prior studies for comparison. Findings: In the area of bruising/palpable concern there is a partially cystic mass measuring 1.3 x 0.9 x 0.8 cm with antiparallel configuration and no internal vascularity. There is posterior acoustic enhancement. Impression: 1: Complex partially cystic 1.3 cm antiparallel mass in the area of bruising/palpable concern at 2:00, 2 cm from the nipple, likely hematoma given the clinical information, although malignancy is not excluded. BI-RADS CATEGORY 3-PROBABLY BENIGN FINDING RECOMMENDATION: 3 month follow-up Limited right breast ultrasound recommended to assess for resolution of mass. Reviewed, dictated and finalized at location C. Impression: 1: Complex partially cystic 1.3 cm antiparallel mass in the area of bruising/pa lpable concern at 2:00, 2 cm from the nipple, likely hematoma given the clinica l information, although malignancy is not excluded. BI-RADS CATEGORY 3-PROBABLY BENIGN FINDING RECOMMENDATION: 3 month follow-up Limited right breast ultrasound recommended t o assess for resolution of mass.
== END 2025-04-27 07:15 | disposition home or self-care (01) ==
LOC: CHSIMG 07:15
PROVIDERS: PCP Family Medicine; Visit Provider Nurse Practitioner Family
DX: N63.10 Unspecified lump in the right breast, unspecified quadrant (principal); N60.01 Solitary cyst of right breast
CPT/HCPCS: 76642